=== PATIENT | female | born 1955 | race African-American/Black ===

== ENCOUNTER 2023-05-14 19:02 | Emergency (ER) | payer MEDICARE, BC ==
[~2023-05-14] VITALS: Ht 167.6 cm; Wt 73.0 kg
[2023-05-14 19:13] VITALS: O2SAT 98
[2023-05-14] MEDS ORDERED: ASPIRIN 81MG TABLET PO NR (19:30)
[2023-05-14] MEDS ORDERED: SODIUM CHLORIDE 0.9% 1,000 ML IV ONE (19:30)
[2023-05-14] MEDS ORDERED: ASPIRIN 81MG TABLET PO ONE (19:30)
[2023-05-14 19:40] LABS: BASOPHILS % 0.9 % (0.0-2.0); EOSINOPHILS % 3.9 % (0.0-5.0); HEMOGLOBIN. 12.9 g/dL (12.0-16.0); LYMPHOCYTES % 35.2 % (20.0-50.0); MEAN CORPUSCULAR HEMOGLOBIN 28.8 pg (28.0-32.0); MEAN CORPUSCULAR VOLUME 87.4 fL (81.0-99.0); MEAN PLATELET VOLUME 9.6 fl (7.4-10.4); MONOCYTES % 11.1 % (2.0-8.0); NEUTROPHILS % 48.9 % (40.0-76.0); PLATELET 250 x1000/uL (130-400); RED BLOOD CELL COUNT 4.46 mill/uL (4.2-5.4); RED CELL DISTRIBUTION WIDTH 12.8 % (11.6-14.6); WHITE BLOOD COUNT 6.1 x1000/uL (4.5-11.0)
[2023-05-14 19:45] LABS: D-DIMER 0.22 mg/L FEU (<0.50); PARTIAL THROMBOPLASTIN TIME 30.3 sec (23.4-31.0); PROTHROMBIN TIME 10.9 sec (9.6-11.0)
[2023-05-14 20:04] LABS: CALCIUM 8.6 mg/dL (8.5-10.1); CHLORIDE 117 mEq/L (98-107); INDEX HEMOLYSI 1 (1-3); INDEX ICTERIC 1 (1-4); INDEX LIPEMIC 1 (1-3); POTASSIUM 3.5 mEq/L (3.5-5.1); SODIUM 140 mEq/L (136-145)
[2023-05-14 20:18] LABS: ALANINE AMINOTRANSFERASE 27 IU/L (13-61); ALBUMIN 3.4 g/dL (3.4-5.0); ASPARTATE AMINOTRANSFERASE 18 IU/L (15-37); BILIRUBIN TOTAL 0.3 mg/dL (0.1-1.0); CARBON DIOXIDE 22 mEq/L (21-32); CREATININE 0.9 mg/dL (0.6-1.3); GLUCOSE 118 mg/dL (70-105); NT PRO B-TYPE NATRIURETIC PEP 1186 pg/mL (5-125); PROTEIN TOTAL 6.9 g/dL (6.0-8.3); TROPONIN I HIGH SENSITIVITY 14 ng/L (<54); UREA NITROGEN BLOOD 17 mg/dL (7-21)
[2023-05-14 21:40] VITALS: BP 125/86; PULSE 110; RESP 18; TEMP 97.8
[2023-05-14 21:44] LABS: TROPONIN I HIGH SENSITIVITY 15 ng/L (<54)
== END 2023-05-14 22:22 | disposition left against medical advice (07) ==
LOC: EDBD 19:02 → ER 19:02 → EDBEDREQ 21:13 → EDBEDREQTM 21:13 → ER 22:22 → CANBEDREQ 23:02
DX: R06.02 Shortness of breath (principal); R07.89 Other chest pain; I48.91 Unspecified atrial fibrillation
CPT/HCPCS: 99285; 96360; 71045; 80053; 83880; 84443; 85025; 85379; 85610; 85730; 84484; 36415; 93005; J7030